=== PATIENT | male | born 1980 | race Caucasian/White ===

== ENCOUNTER 2016-07-08 10:24 | Emergency (ER) ==
[2016-07-08 10:29] VITALS: BP 145/82; TEMP 98.9; BMI 27.5
--- NOTE | 2016-07-08 11:40 | ED.PDOC ---
General ED Provider: Dr. DENNIS MARIO JR Chief Complaint: Tooth Problem Stated Complaint: Pain left upper tooth. States cis canine tooth broke. Seen this ER for same in past. Has been taking Advil. No help[End]3 DAYS 3 DAYS 98.9 81 20 98% 145/82 8/10 Time Seen by Physician: 11:37 Mode of Arrival: Walk-In Information Source: Patient Exam Limitations: No limitations Nursing and Triage Documentation Reviewed and Agree: No Review of Systems - Review Of Systems Constitutional: Reports: No symptoms Ears, Nose, Mouth, Throat: Reports: Mouth pain, Mouth swelling All Other Systems: Other Past Medical History - Past Medical History Previously Healthy: Yes Endocrine: Reports: None Cardiovascular: Reports: None Respiratory: Reports: Pneumonia Hematological: Reports: None Gastrointestinal: Reports: None Genitourinary: Reports: None Neuro/Psych: Reports: None Musculoskeletal: Reports: None Cancer: Reports: None - Surgical History General Surgical History: Reports: None - Family History Family History: Reports: Unknown - Social History Smoking Status: Current every day smoker, Heavy tobacco smoker Hx Substance Use: No Alcohol Screening: None Physical Exam - Physical Exam Appearance: Well-appearing Pain Distress: Moderate ENT: Erythema Critical Care Note - Critical Care Note Total Time (mins): 0 Course - Course Vital Signs: Temp Pulse Resp BP Pulse Ox 07/08/16 10:25 98.9 F 81 20 145/82 H 98 Departure - Departure Time of Disposition: 11:40 Disposition: HOME SELF-CARE Discharge Problem: Toothache, Dental abscess Instructions: Dental Abscess (ED), Dental Caries (ED), Toothache (ED) Condition: Good Pt referred to PMD for follow-up: Yes Additional Instructions: FOLLOW UP WITH DENTIST SOON POSSIBLE RETURN IF FEVER OVER 101.0 OR MENTAL CHANGES ANTIBIOTIC UNTIL GONE NAPROSYN FOR PAIN Prescriptions: Naproxen [Naprosyn] 500 mg PO Q12HR PRN #30 tablet PRN Reason: PAIN Amoxicillin 500 mg PO TID #21 capsule Allergies/Adverse Reactions: Allergies No Known Allergies Allergy (Verified 08/30/15 19:51) Home Medications: Ambulatory Orders Amoxicillin 500 mg PO TID #21 capsule 07/08/16 Naproxen [Naprosyn] 500 mg PO Q12HR PRN #30 tablet 07/08/16
== END 2016-07-08 12:16 | disposition home or self-care (01) ==
LOC: ED 10:24
DX: K04.7 Periapical abscess without sinus (principal); K08.89 Other specified disorders of teeth and supporting structures; F17.210 Nicotine dependence, cigarettes, uncomplicated
CPT/HCPCS: 99282